=== PATIENT | male | born 1990 | race Caucasian/White ===

== ENCOUNTER 2019-05-29 04:19 | Emergency (ER) | payer BC, OTHER ==
[2019-05-29 04:43] VITALS: O2SAT 98
--- NOTE | 2019-05-29 05:35 | ERPHSYRPT ---
- History of Present Illness Time Seen by Provider: 05/29/19 05:00 Source: patient Exam Limitations: no limitations Patient Subjective Stated Complaint: pt states, "I lost my footing on a ladder at work and hit my arm on a drill track, resulting in a cut thats gonna probably need stitches". Triage Nursing Assessment: pt ambulated to rm 4, pt alert and oriented x4, pleasant and cooperative. Pt has 3.4 cm L x 0.3 cm W, x 0.2 cm D laceration to lt proximal forearm. Lungs clear, heart tones reg, abd soft with active bws x4 quad, non-tender. Physician History: 28 y/o white male lost footing at work and fell into metal suffering a left forearm laceration. pts tetanus is utd. Timing/Duration: today Quality: painful (mild) Location: extremities (left forearm) Associated Symptoms: denies symptoms Allergies/Adverse Reactions: No Known Drug Allergies Allergy (Unverified 05/08/14 20:10) Home Medications: Esomeprazole Magnesium [Nexium] 20 mg PO DAILY 05/29/19 [History] Lisinopril 10 mg [Zestril 10 MG] 10 mg PO DAILY 05/29/19 [History] Metoprolol Succinate 25 mg Xl* [Toprol-Xl 25MG Tablets] 25 mg PO DAILY [History] Hx Tetanus, Diphtheria Vaccination/Date Given: Yes Hx Influenza Vaccination/Date Given: No Hx Pneumococcal Vaccination/Date Given: No Immunizations Up to Date: Yes - Review of Systems Constitutional: No Symptoms Eyes: No Symptoms Ears, Nose, & Throat: No Symptoms Respiratory: No Symptoms Cardiac: No Symptoms Abdominal/Gastrointestinal: No Symptoms Genitourinary Symptoms: No Symptoms Musculoskeletal: No Symptoms Skin: Other (laceration left forearm) Neurological: No Symptoms Psychological: No Symptoms Endocrine: No Symptoms Hematologic/Lymphatic: No Symptoms Immunological/Allergic: No Symptoms All Other Systems: Reviewed and Negative - Past Medical History Pertinent Past Medical History: No Neurological History: No Pertinent History ENT History: No Pertinent History Cardiac History: Hypertension Respiratory History: No Pertinent History Endocrine Medical History: No Pertinent History Musculoskeletal History: No Pertinent History GI Medical History: Ulcer History: No Pertinent History Psycho-Social History: No Pertinent History Male Reproductive Disorders: No Pertinent History - Past Surgical History Past Surgical History: No Neuro Surgical History: No Pertinent History Cardiac: No Pertinent History Respiratory: No Pertinent History Gastrointestinal: No Pertinent History Genitourinary: No Pertinent History Musculoskeletal: No Pertinent History Male Surgical History: No Pertinent History - Social History Smoking Status: Never smoker Exposure to second hand smoke: Yes Drug Use: none Patient Lives Alone: No - Nursing Vital Signs Nursing Vital Signs: Initial Vital Signs Temperature 98.9 F 05/29/19 04:19 Pulse Rate 80 05/29/19 04:19 Respiratory Rate 17 05/29/19 04:19 Blood Pressure 179/97 05/29/19 04:19 O2 Sat by Pulse Oximetry 98 05/29/19 04:19 Pain Scale Pain Intensity 0 - Physical Exam General Appearance: no apparent distress, alert, anxiety Ears, Nose, Throat Exam: normal ENT inspection, moist mucous membranes Neck Exam: normal inspection, non-tender, supple, full range of motion Respiratory Exam: normal breath sounds, lungs clear, No chest tenderness, No respiratory distress Cardiovascular Exam: regular rate/rhythm, normal heart sounds, normal peripheral pulses Gastrointestinal/Abdomen Exam: soft, normal bowel sounds, No tenderness Rectal Exam: not done Back Exam: normal inspection, normal range of motion, No CVA tenderness, No vertebral tenderness Extremity Exam: normal inspection, normal range of motion, pelvis stable Neurologic Exam: alert, oriented x 3, cooperative, green hide inspector II-XII nml as tested Skin Exam: normal color, warm, dry, laceration (5cm left forearm lac. no fb. no active) Lymphatic Exam: No adenopathy SpO2 Interpretation: normal SpO2: 98 O2 Delivery: Room Air Procedures - Laceration/Wound Repair Left Dorsal Arm Wound Location: Left, lower arm (forearm) Wound's Depth, Shape: superficial, linear Wound Explored: to base Irrigated: Yes Hibiclens Prep: Yes Volume Anesthetic (ccs): 0 (pt does not want lidocaine) Wound Repaired With: Renan (six) Sterile Dressing Applied?: Yes Splint Applied?: No Progress: 05/29/19 05:36 mabel well. complications - Course Nursing assessment & vital signs reviewed: Yes - Progress Progress: improved Counseled pt/family regarding: diagnosis, need for follow-up - Departure Departure Disposition: Home Clinical Impression: Forearm laceration Condition: Stable Critical Care Time: No Referrals: DOCTOR,NO FAMILY [Primary Care Provider] - Additional Instructions: keep dry for 24 hours. after 24 hours, may wash daily. apply daily antibiotic ointment of choice and cover with bandage. staple removal in 8 to 10 days. tylenol and ibuprofen for pain.
[2019-05-29 05:40] VITALS: BP 142/92; PULSE 94
== END 2019-05-29 05:43 | disposition home or self-care (01) ==
LOC: ED 04:19
DX: S51.812A Laceration without foreign body of left forearm, initial encounter (principal); W26.8XXA Contact with other sharp object(s), not elsewhere classified, initial encounter
CPT/HCPCS: 12002; 99283